=== PATIENT | female | born 1990 | race Caucasian/White ===

== ENCOUNTER → 2016-10-01 | Outpatient (CLI) | payer OTHER | LOC: COL.LAB 11:40 | DX: Z01.89 Encounter for other specified special examinations (principal) ==

== ENCOUNTER → 2016-10-09 | Outpatient (CLI) | payer OTHER | LOC: COL.RAD 08:37 | DX: M54.2 Cervicalgia (principal); R51 Headache ==

== ENCOUNTER → 2016-10-28 | Outpatient (CLI) | payer OTHER | LOC: MHCPAIN 09:10 | DX: G89.29 Other chronic pain (principal); M47.812 Spondylosis without myelopathy or radiculopathy, cervical region; M54.81 Occipital neuralgia; R51 Headache | CPT/HCPCS: G0463 ==

== ENCOUNTER → 2016-11-05 | Outpatient (CLI) | payer OTHER | LOC: MHCPAIN 13:35 | DX: M54.81 Occipital neuralgia (principal) | CPT/HCPCS: J1100 ==

== ENCOUNTER → 2016-11-19 | Outpatient (CLI) | payer OTHER | LOC: MHCPAIN 10:59 | DX: G89.29 Other chronic pain (principal); M50.90 Cervical disc disorder, unspecified, unspecified cervical region; M54.81 Occipital neuralgia; R51 Headache | CPT/HCPCS: G0463 ==

== ENCOUNTER → 2018-09-14 | Outpatient (CLI) | payer OTHER ==
[~2018-09-14] VITALS: Ht 157.5 cm; Wt 85.3 kg
[~2018-09-14] MED LIST: CONCEPT DHA1 CAP PO; OSCAL 500 TAB500 MG PO; TOPROL XL 50MG50 MG PO; TYLENOL 500MG500 MG PO
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
--- NOTE | 2018-09-14 10:20 | NUR ---
Patient off the monitor and given discharge instructions, patient verbalizes understanding and signs papers. 1025: Patient ambulatory off unit with family member.
== END ==
LOC: LDRO 09:10
DX: O9A.212 Injury, poisoning and certain other consequences of external causes complicating pregnancy, second trimester (principal); V49.9XXA Car occupant (driver) (passenger) injured in unspecified traffic accident, initial encounter; Z3A.27 27 weeks gestation of pregnancy

== ENCOUNTER 2018-12-04 16:08 | Outpatient (CLI) | payer OTHER ==
[2018-12-04] VITALS (7 sets, daily range): BP systolic 121–150; BP diastolic 68–90; PULSE 91–95; TEMP 98.4
[~2018-12-04] VITALS: Ht 157.5 cm; Wt 91.8 kg
--- NOTE | 2018-12-04 16:10 | NUR ---
Patient arrives ambulatory with spouse with complaints of headache and "feeling bad". Patient has a history of CHTN and was instructed to increase Labetolol this morning per overnight physician. Patient reports occasional "spots" and increased swelling. Denies RUQ pain, vaginal bleeding, ROM or contractions. Reports normal movement. Changes into gown, EFM explained and placed. VS obtained. Orders per Dr. Back for CBC, CMP, UA and serial BPs. Patient updated on plan of care. Assessment completed. Lights dimmed. Patient denies need at this time. Call light in reach. 5361- Lab at bedside for ordered labs.
[2018-12-04] MEDS ORDERED: TRANDATE 100MG100 MG PO (16:36)
[2018-12-04] MEDS ORDERED: MUCINEX1200 MG PO (16:37)
[2018-12-04] MEDS ORDERED: TESSALON P100 MG/CAP PO (16:38)
[2018-12-04 16:54] LABS: COLLECTION METHOD CLEAN CATCH
[2018-12-04 16:58] LABS: BASO % 0.2 % (0.0-2.0); EOS # 0.1 (0.0-0.7); EOS % 0.6 % (0-4.0); GRAN # 9.2 (1.4-6.5); HEMOGLOBIN 10.2 g/dl (12.5-16.0); LYMPH % 16.4 % (20.0-51.0); MEAN CELL VOLUME 94 fl (80.0-100.0); MEAN CORPUSCULAR HEMOGLOBIN 29 pg (27.0-31.0); MEAN CORPUSCULAR HGB CONC 31 g/dl (33.0-37.0); MEAN PLATELET VOLUME 10.9 fl (7.4-10.4); MONO # 0.9 (0.1-0.6); MONO % 7.1 % (1.7-9.3); PLATELET COUNT 227 K/mm3 (130-400); RED BLOOD COUNT 3.52 M/mm3 (4.10-5.30); REDCELL DISTRIBUTION WIDTH-CV 12.8 % (11.5-14.5)
[2018-12-04 17:00] LABS: PH 7 (5-8); SQUAMOUS EPITHELIAL None Seen /hpf; URINE APPEARANCE Clear; URINE BACTERIA None Seen /hpf; URINE BILIRUBIN Negative (NEGATIVE); URINE BLOOD Negative (NEGATIVE); URINE COLOR Colorless; URINE GLUCOSE Negative (NEGATIVE); URINE KETONE Negative (NEGATIVE); URINE LEUKOCYTE ESTERASE Negative (NEGATIVE); URINE NITRATE Negative (NEGATIVE); URINE PROTEIN(semi-quant) Negative (NEGATIVE); URINE RBC None Seen /hpf; URINE UROBILINOGEN Negative (NEGATIVE)
[2018-12-04 17:03] LABS: HEMATOCRIT 32.9 % (37.0-47.0)
[2018-12-04 17:13] LABS: ALBUMIN 3.3 gm/dL (3.5-5.0); BILIRUBIN,TOTAL 0.2 mg/dL (0.0-1.0); CREATININE, serum 0.66 (0.52-1.25); POTASSIUM 3.9 mmol/L (3.4-5.0); TOTAL PROTEIN 6.5 gm/dL (6.4-8.2)
--- NOTE | 2018-12-04 17:45 | NUR ---
Patient updated on plan of care for discharge, desires induction tomorrow evening. Reviewed labor precautions, kick counts and preeclampsia s/s. Patient denies questions and leaves ambulatory.
== END 2018-12-04 17:45 | disposition home or self-care (01) ==
LOC: LDRO 16:08
PROVIDERS: Student in an Organized Health Care Education/Training Program
DX: O99.89 Other specified diseases and conditions complicating pregnancy, childbirth and the puerperium (principal); R51 Headache; R60.9 Edema, unspecified; Z3A.38 38 weeks gestation of pregnancy

== ENCOUNTER 2018-12-05 18:54 | Inpatient (IN) | payer OTHER ==
[~2018-12-05] VITALS: Ht 160.1 cm; Wt 91.8 kg
[2018-12-05] VITALS (12 sets, daily range): BP systolic 127–179; BP diastolic 65–84; PULSE 82–111; TEMP 98.8–99
[~2018-12-05 18:54] MED LIST changes: +MUCINEX1200 MG PO; +TESSALON P100 MG/CAP PO; +TRANDATE 100MG100 MG PO
--- NOTE | 2018-12-05 19:00 | NUR ---
G1 at 38 weeks and 4 days arrives to unit for scheduled induction of labor. Pt reports good movement, denies vaginal bleeding, denies contractions. Pt has chronic hypertension and reports a headache that just started. Pt reports headache pain a 4/10 and it wraps around her head. Headaches usually go away with tylenol. Pt has mild lower extremeity edema. Pt oriented to room, bed in low and locked position, call light within reach. Admission assessment started. Vital signs obtained. Plan of care reviewed with patient and spouse.
--- NOTE | 2018-12-05 19:20 | NUR ---
IV started in Right hand with 1 attempt. Admission labs obtained from IV start. Lactated Ringers infusing to gravity. Consents reviewed and signed with patient and spouse. All questions answered.
--- NOTE | 2018-12-05 19:40 | NUR ---
Category 1 tracing. 50 mcg of Cytotec placed in posterior fornix of vagina. Safety precautions reviewed. Pt aware she must stay in bed for 2 hours after placement of cytotec. SVE 0/50/-3
--- NOTE | 2018-12-05 20:20 | NUR ---
Pt complaining of headache, rating pain 4/10, describes pain as wrapping around her head. Tylenol given, see MAR. Pt also took own supply of labetalol, see MAR.
[2018-12-05 20:45] LABS: BASO % 0.2 % (0.0-2.0); EOS # 0.1 (0.0-0.7); EOS % 0.7 % (0-4.0); GRAN # 11.7 (1.4-6.5); GRAN % 76.9 % (42.2-75.2); LYMPH # 2.3 (1.2-3.4); LYMPH % 15.3 % (20.0-51.0); MEAN CORPUSCULAR HEMOGLOBIN 29 pg (27.0-31.0); MEAN CORPUSCULAR HGB CONC 33 g/dl (33.0-37.0); MONO # 0.9 (0.1-0.6); PLATELET COUNT 264 K/mm3 (130-400); RED BLOOD COUNT 3.46 M/mm3 (4.10-5.30); REDCELL DISTRIBUTION WIDTH-CV 12.7 % (11.5-14.5)
[2018-12-05 20:47] LABS: HEMATOCRIT 30.6 % (37.0-47.0); MEAN CELL VOLUME 88 fl (80.0-100.0)
--- NOTE | 2018-12-05 23:20 | NUR ---
Pt sitting up in bed. EFM tracing maternal heartrate. Verified by palpitation.
[2018-12-06] VITALS (62 sets, daily range): BP systolic 90–156; BP diastolic 52–103; PULSE 78–107; TEMP 97.6–98.7
--- NOTE | 2018-12-06 00:20 | NUR ---
Category 2 tracing. 25 mcg of cytotec placed in posterior fornix of vagina. SVE 0/70/-3. Safety precautions reviewed.
--- NOTE | 2018-12-06 02:20 | NUR ---
Monitors removed, pt up to bathroom to void. Pt desires to be off of monitor for 1 hour for comfort. Reviewed plan of care. Will monitor again around 0315.
--- NOTE | 2018-12-06 04:30 | NUR ---
Category 1 tracing. SVE 0.5/70/-3. 25 mcg cytotec placed in posterior fornix of vagina. Plan of care reviewed with patient. Pt positioned to left wedge for comfort.
--- NOTE | 2018-12-06 06:15 | NUR ---
0615-Recieved bedside shift report from SARAH Reed Patient sitting upright high fowlers. INT to left hand. Updated on plan of care. Mother of patiava, Nuvia, in rocking chair and Spouse, William, in recliner. Denies needs. VSS, reports feeling "crampy" but denies need for pain medication. 0620-Adjusted EFM. [place] tracing contractions every 2-3 min, palpate firm. 0642-off EFM to ambulate. 0702-Dr. Back updated on patient, see physician notification. Patient oriented to noursihment room and provided lite breakfast. 0735-Patient back on EFM. Updated on plan to start pitocin after reactive strip obtained per MD orders. 0754-Pitocin started at 2 mu/min per MD orders and protocol.
--- NOTE | 2018-12-06 08:14 | NUR ---
0814-Patient leaning forward, EFM tracing maternal HR 106, adjusted EFM, 0820-Patient up to BB 0833-Dr. Back on unit, reviews FHR inga haywood patient is up to BB and just increased pit to 6mu/min. No new orders, will go in to see patient after rounds.
--- NOTE | 2018-12-06 08:52 | NUR ---
0852-Patient up to bathroom, voids 100ml clear urine. 0858-Patient back to bed WL 0900- in patient room. Updates patient on plan of care. 901-Patient supine for spec placement. Speculum placed by Dr. Back, uterine catheter threaded and uterine balloon infalted with 60ml NS, Vaginal balloon infalated with 40ml NS. 909-Patient back HF, Updated on plan of care. 929-Dr. Back back to patient room, tension on Uterine catheter,patient tolerated well. Catheter secured to left inner thigh with tape. Maternal BP 147/98, HR 92 updated MD, will continue to monitor.
--- NOTE | 2018-12-06 09:00 | NUR ---
0900-Patient took own labetalol per MD orders 200mg PO.
--- NOTE | 2018-12-06 09:45 | NUR ---
0945-Patient up to bedside standing.
--- NOTE | 2018-12-06 09:47 | NUR ---
0947-Patient up to bedside standing. Adj. EFM. 0951-Patient to BB, difficulty tracing FHR and contractions due to maternal positioning. RN frequently adjusts EFM.
--- NOTE | 2018-12-06 10:10 | NUR ---
[id number] RN Frequently readjusing EFM difficulty tracing while PT on BB. 1025-PT to Bed WL. Dr. Back on unit and updated on patients discomfort. VO for stadol PRN 1mg x 1. Updated patient, patient requests Stadol. 1027-Stadol given, see EMAR.
--- NOTE | 2018-12-06 11:00 | NUR ---
DIFFICULTY TRACING CONTRACCTIONS VIA TOCO. SUBTLE DECEL WITH SPONTANEOUS RETURN TO BASELIEN. EFM ADJUSTED.
--- NOTE | 2018-12-06 11:37 | NUR ---
1137-Difficulty tracin EFM repositioned WL.
--- NOTE | 2018-12-06 12:03 | NUR ---
1203-Patient up pto bathroom, UC tension checked, Returns to bedside in rocking chair. 1225-Pateint reports feeling fluid leaking, confirmed SROM, clear fluid noted. 1233-Patient to bed. 1240-Uterine Catheter removed. Attempted SVE, patient did not tolerate SVE, requests epdiural. RAJESH Maldonado notified. 1246-Patient sitting up breathing through contractions, "I feel nauseated." 1250-PRN zofran given, see EMAR.
--- NOTE | 2018-12-06 13:14 | NUR ---
DIFFICULTY TRACING CONTRACTIONS REPOSITOINED WR RN ADJUSTED EFM.
--- NOTE | 2018-12-06 13:17 | NUR ---
1317-RAJESH Maldonado to room. Patient sitting upright for epidural placment. RAJESH Maldonado reviews placement with patient. RN adjusts EFM difficulty tracing FHR and Contractions due to maternal positioning. 1322-SS administered by RAJESH Maldonado. Patient tolerates procedure well. 1330-Patient WR, FHR with recurrent decels down to 100 bpm lasting 50 secongs, Repositioned WL, 1338-Dr. Back updated, see physician notification.
--- NOTE | 2018-12-06 13:53 | NUR ---
1353-Dailey placed to DD, clear yellow urine return. 1354-sve , late decel in FHR lasting 60 sec, repositioned wl and back wr. Recurrent decels despite position changes, pitocin turned off, and oxygen via oxymask at 10 l/min. 1400-Dr. Back notified of recurrent decels, MD reports will pull up strip to evaluate. 1404-MD called unit back with orders to give 10mg ephedrine now. 1406-Ephedrine given Maternal BP 97/50, HR 85. 1411-Maternal BP 91/51 HR 90, 10MG ephedrine given, SEE EMAR. 1415-Patient LL, RN remains at bedside. 1424-Dr. Back on unit. SVE by , Repositioned LL with peanut. 1433-oxygen off at this time.
--- NOTE | 2018-12-06 15:05 | NUR ---
1505- remains on unit. VO to start pit at 10mu/min 1516-Repositioned WL 1518-Difficulty to trace FHR via scalp, SVE cervix unchanged, +Scalp Stim. Dr. Back to room. Repositoined patient WR and then to with foot of bed down. MD confirming FHR via external doppler. Dr. Back reviews plan of care with patient. 1533-Verbal order to turn pit off. MD remains on unit at labor desk.. FSE monitor resumed.
--- NOTE | 2018-12-06 16:00 | NUR ---
1600-DR. GREER GIVES VO ON UNIT TO RESUME PIT AT 10MU. REVIEWS FHR MONITR AT LABOR DESK.
--- NOTE | 2018-12-06 16:20 | NUR ---
1620-late decl in FHR down to 70bpm, Dr. Back on unit, Decel lasting 70 sec. SVE by /-3. Pit off. Oxygen back on. discusses c/s with patient 1624-Recurrent late decel down to 70bpm, Patient RL, Decel slow to return to baseline over 2 min. 1636-Patient off EFM and to OR via bed
[2018-12-07 01:00] VITALS: BP 120/74; PULSE 110; TEMP 98.8
[2018-12-07 04:43] VITALS: BP 109/51; PULSE 93; TEMP 98.4
--- NOTE | 2018-12-07 05:00 | NUR ---
Up to restroom at this time. Wiggins catheter dc'd at this time; 745mls noted in wiggins. Ambulated well. Pericare provided. Clean linens to bed. Tolerated well. POC reviewed. Denied questions or concerns.
[2018-12-07 08:00] VITALS: BP 131/61; PULSE 98; TEMP 97.5
[2018-12-07 09:26] LABS: BASO % 0.1 % (0.0-2.0); EOS % 0.2 % (0-4.0); GRAN # 17.3 (1.4-6.5); GRAN % 85.7 % (42.2-75.2); LYMPH # 1.7 (1.2-3.4); LYMPH % 8.3 % (20.0-51.0); MEAN CELL VOLUME 90 fl (80.0-100.0); MEAN CORPUSCULAR HGB CONC 32 g/dl (33.0-37.0); MEAN PLATELET VOLUME 10.5 fl (7.4-10.4); MONO % 5.1 % (1.7-9.3); PLATELET COUNT 229 K/mm3 (130-400); RED BLOOD COUNT 2.88 M/mm3 (4.10-5.30)
[2018-12-07 09:39] LABS: HEMATOCRIT 25.8 % (37.0-47.0); HEMOGLOBIN 8.3 g/dl (12.5-16.0); MEAN CORPUSCULAR HEMOGLOBIN 29 pg (27.0-31.0)
--- NOTE | 2018-12-07 11:31 | NUR ---
Initial visit; Parents thanked Consumer Safety Officer for offering congratulaitons and God's blessings for the of their daughter. Consumer Safety Officer thanked family for choosing [facility].
[2018-12-07 15:39] VITALS: BP 137/73; PULSE 107; TEMP 98.1
[2018-12-07 20:30] VITALS: BP 140/83; PULSE 109; TEMP 98.7
[2018-12-08 08:03] VITALS: BP 123/75; PULSE 95; TEMP 98
[2018-12-08 17:00] VITALS: BP 129/74; PULSE 82; TEMP 97.7
[2018-12-08 20:55] VITALS: BP 137/92; PULSE 95; TEMP 97.6
[2018-12-09 00:35] VITALS: BP 141/67; PULSE 103; TEMP 97.9
[2018-12-09] MEDS ORDERED: IBU800 M1 PO (08:27)
[2018-12-09] MEDS ORDERED: PERCOCET 325 MG1 TA2 PO (08:28)
[2018-12-09 08:30] VITALS: BP 140/86; PULSE 92; TEMP 98
--- NOTE | 2018-12-09 15:14 | NUR ---
DISCHARGE INSTRUCTIONS REVIEWED WITH PATIENT AND . SCRIPT FOR PERCOCET GIVEN AND EXPLAINED. PATIENT VERBALIZES UNDERSTANDING. ESCORTED OUT TO PRIVATE VEHICLE.
== END 2018-12-09 15:30 | disposition home or self-care (01) | DRG 788 ==
LOC: LDR 18:54 → OB 18:54 → LDR 19:16 → OB 12-06 19:27
PROVIDERS: ADMIT Student in an Organized Health Care Education/Training Program
PROC: 3E0P7GC Introduction of Other Therapeutic Substance into Female Reproductive, Via Natural or Artificial Opening (ICD-10-PCS; principal; 2018-12-06)
PROC: 3E033VJ Introduction of Other Hormone into Peripheral Vein, Percutaneous Approach (ICD-10-PCS; 2018-12-06)
PROC: 10D00Z1 Extraction of Products of Conception, Low, Open Approach (ICD-10-PCS; 2018-12-06)
PROC: 0U7C7ZZ Dilation of Cervix, Via Natural or Artificial Opening (ICD-10-PCS; 2018-12-06)
DX: O10.92 Unspecified pre-existing hypertension complicating childbirth (principal); O76 Abnormality in fetal heart rate and rhythm complicating labor and delivery; O62.2 Other uterine inertia; Z3A.38 38 weeks gestation of pregnancy; Z37.0 Single live birth
CPT/HCPCS: J0360; J0595; J0690; J1885; J2250; J2370; J2405; J2590; J2795; J3010; J7050; J7120

== ENCOUNTER → 2018-12-14 | Outpatient (CLI) | payer OTHER ==
[~2018-12-14] MED LIST changes: +IBU800 M1 PO; +PERCOCET 325 MG1 TA2 PO
--- NOTE | 2018-12-14 15:17 | NUR ---
Pt, Vonnie Abdalla, presents to walk-in clinic with eight day old baby girl, Shani Abdalla, for a evaluation. She states she had to start using formula supplement to help clear Shani's jaundice and is concerned about milk supply. Shani was born by c/section on [birth year] and weighed 7#1.2oz. Discharge weight was 6#7oz. Because of bilirubin levels pt was advised to supplement formula after ; Shani currently takes 1-2 oz by bottle after . Pt tried decreasing supplement yesterday after Shani was noted to weigh 7# at the doctor's office, however she was not content and required the continued supplement. Pt states she does not feel her breasts get as full between feedings as they did a few days ago. Today Shani weighs 7#2.2oz. She latches easily, nurses bilaterally and has a weight gain of 32gms. Pt agrees to try SNS, LC assists and instructs pt on use of SNS, infant latches well, SNS works well. AFter feeding with SNS Shani has a total weight gain; 24ml from SNS, 32 from first , and an additional 14 with SNS feeding. POC: Pt advised to continue every 2-3 hours, Supplement after , preferably with SNS (offer 12ml syringe on each breast). If she does not SNS offer 1-2oz EBM or formula by bottle and pump after feeding to help improve milk supply. Pt verbalizes understanding. F/U: anticipates at walk-in clinic next week. Questions invited and answered.
== END ==
LOC: OLC 11:13
DX: Z39.1 Encounter for care and examination of lactating mother (principal); Z71.89 Other specified counseling

== ENCOUNTER → 2022-03-31 | Outpatient (CLI) | payer BC | LOC: COL.RAD 11:07 | DX: I67.89 Other cerebrovascular disease (principal); G37.9 Demyelinating disease of central nervous system, unspecified; J32.0 Chronic maxillary sinusitis; J32.2 Chronic ethmoidal sinusitis ==

== ENCOUNTER 2023-07-28 09:48 | Inpatient (IN) | payer BC ==
[2023-07-28] VITALS (17 sets, daily range): BP systolic 94–163; BP diastolic 47–93; PULSE 72–98; TEMP 97.1–98.7
[~2023-07-28] VITALS: Ht 160 cm; Wt 91.1 kg
--- NOTE | 2023-07-28 10:00 | NUR ---
PT OREINTED TO ROOM AND CHANGED INTO GOWN. PT PLACED ON FHT MONITORS AND VS TAKEN. BP HIGH AT 146/89. FHT CATAGORY 2 DUE TO A VARIABLE AT 1024, PT WAS REPOSTITIONED AND FHT RESOLVED. PT COMPLAINS OF NO CX, LEAKING OF FLUID OR VAGINAL BLEEDING. PT IS FEELING REGUAL MOVMENT.
[2023-07-28] MEDS ORDERED: MAGNESIUM200 MG PO (10:13)
[2023-07-28] MEDS ORDERED: BENADRYL25 M2 PO (10:14)
[2023-07-28] MEDS ORDERED: COLACE 100100 MG/CAP PO (10:14)
[2023-07-28] MEDS ORDERED: VITAMIN B225 MG PO (10:15)
[2023-07-28 10:35] LABS: BASO % 0.3 % (0.0-2.0); EOS # 0.1 K/mm3 (0.0-0.7); EOS % 1.1 % (0.0-4.0); GRAN % 72.3 % (42.2-75.2); HEMOGLOBIN 12.5 g/dl (12.5-16.0); LYMPH % 20.3 % (20.0-51.0); MEAN CELL VOLUME 90 fl (80.0-100.0); MEAN CORPUSCULAR HEMOGLOBIN 31 pg (27-31); MEAN CORPUSCULAR HGB CONC 35 g/dl (33.0-37.0); MEAN PLATELET VOLUME 10.5 fl (7.4-10.4); MONO # 0.5 K/mm3 (0.1-0.6); MONO % 5.6 % (1.7-9.3); PLATELET COUNT 206 K/mm3 (130-400); RED BLOOD COUNT 4.01 M/mm3 (4.10-5.30); REDCELL DISTRIBUTION WIDTH-CV 13.2 % (11.5-14.5)
[2023-07-29 00:25] VITALS: BP 149/89; PULSE 82; TEMP 98.4
[2023-07-29 07:33] VITALS: BP 129/83; PULSE 80; TEMP 98
--- NOTE | 2023-07-29 09:49 | NUR ---
Initial visit; Parents resting, Ladle Mechanic was able to catch family awake and offer congratulations and God's blessings for the of their daughter and learn her name. Ladle Mechanic thanked family for choosing [facility].
[2023-07-29 17:00] VITALS: BP 171/96; PULSE 87; TEMP 98
[2023-07-29 19:15] VITALS: BP 142/85; PULSE 83; TEMP 97.8
[2023-07-30 06:35] VITALS: BP 136/82; PULSE 73; TEMP 97.7
[2023-07-30] MEDS ORDERED: IBU800 M1 PO (08:16)
[2023-07-30] MEDS ORDERED: NORCO 325 MG-51 TAB PO (08:16)
--- NOTE | 2023-07-30 13:00 | NUR ---
DISCHARGE EDUCATION COMPLETED, HEALTH HISTORY GIVEN, QUESTIONS INVITED AND ANSWERED. TALKED ABOUT FOLLOW UP APPOINTMENTS AND MEDICATIONS.
== END 2023-07-30 14:00 | disposition home or self-care (01) | DRG 787 ==
LOC: OB 09:48
PROVIDERS: ADMIT Student in an Organized Health Care Education/Training Program
PROC: 10D00Z1 Extraction of Products of Conception, Low, Open Approach (ICD-10-PCS; principal; 2023-07-28)
DX: O34.211 Maternal care for low transverse scar from previous cesarean delivery (principal); O10.92 Unspecified pre-existing hypertension complicating childbirth; O98.52 Other viral diseases complicating childbirth; Z3A.39 39 weeks gestation of pregnancy; Z37.0 Single live birth; B00.1 Herpesviral vesicular dermatitis; O69.81X0 Labor and delivery complicated by cord around neck, without compression, not applicable or unspecified; G44.209 Tension-type headache, unspecified, not intractable; O99.892 Other specified diseases and conditions complicating childbirth; Z88.0 Allergy status to penicillin; Z88.2 Allergy status to sulfonamides; Z88.8 Allergy status to other drugs, medicaments and biological substances; Z88.5 Allergy status to narcotic agent; Z23 Encounter for immunization
CPT/HCPCS: J0171; J0665; J0690; J1100; J1885; J2371; J2405; J2590; J7120